=== PATIENT | female | born 2000 ===

== ENCOUNTER 2021-04-18 17:46 | Outpatient (CLI) | payer SELFPAY ==
[2021-04-18 18:42] VITALS: BP 119/72
[2021-04-18] MEDS ORDERED: LACTATED RINGERS 1,000 ML IV ONE (19:09)
[2021-04-18] MEDS ORDERED: LACTATED RINGERS 1,000 ML ONE (19:09)
[2021-04-18 19:31] LABS: Bacteria,Urine 1+ /HPF (Negative); Bilirubin,Urine NEG (Negative); Blood,Urine NEG (Negative); Color,Urine Straw (Yellow); Protein,Urine <15 mg/dL mg/dL (Negative); Urobilinogen,Urine < 2.0 mg/dL (<2.0); WBC,Urine < 1.0 /HPF (0.0-6.0)
[2021-04-18] MEDS ORDERED: TERBUTALINE 1 MG/1 ML INJ SUB-Q PRN (20:50)
== END 2021-04-18 22:00 | disposition home or self-care (01) ==
LOC: TRG 17:46 → APU 17:49 → TRG 22:00
PROVIDERS: ATTEND Obstetrics & Gynecology
DX: O62.9 Abnormality of forces of labor, unspecified (principal); Z3A.33 33 weeks gestation of pregnancy
CPT/HCPCS: 59025; 81001; 96360; 96372; J3105; J7120

== ENCOUNTER 2021-06-17 08:46 | Inpatient (IN) | payer SELFPAY ==
--- NOTE | 2021-06-17 10:35 | History and Physical Report ---
History of Present Illness Date of examination: 06/17/21 Date of admission: 06/17/2021 Chief complaint: Presents with a compliant of vaginal bleeding History of present illness: Late and Limited Care at [facility] at 26 Weeks; Only had 2 Visits; VILLA confirmed with ultrasound at 27 Weeks. Past History Past Medical History: no pertinent history Past Surgical History: no surgical history Family/Genetic History: none Social history: no significant social history, single - Obstetrical History Expected Date of Delivery: 06/05/21 Actual Gestation: 41 Week(s) 5 Day(s) : 1 Medications and Allergies Allergies Allergy/AdvReac Type Severity Reaction Status Date / Time No Known Allergies Allergy Verified 04/18/21 18:45 Active Meds: Active Medications Acetaminophen (Acetaminophen 325 Mg Tab) 650 mg PO Q4H PRN PRN Reason: Pain, Mild (1-3) Butorphanol Tartrate (Butorphanol 2 Mg/1 Ml Inj) 1 mg IV Q2H PRN PRN Reason: Pain, Moderate(4-6) LABOR PAIN Butorphanol Tartrate (Butorphanol 2 Mg/1 Ml Inj) 2 mg IV Q2H PRN PRN Reason: Pain , Severe (7-10) Carboprost Tromethamine (Carboprost Tromethamine 250 Mcg/1 Ml Inj) 250 mcg IM ONCE PRN PRN Reason: Uterine Bleeding Ephedrine Sulfate (Ephedrine Sulfate 50 Mg/1 Ml Inj) 10 mg IV Q2M PRN PRN Reason: Hypotension Lactated Ringer's (Lactated Ringers) 1,000 mls @ 125 mls/hr IV DIRECT ABIODUN Oxytocin/Sodium Chloride (Pitocin/Ns 30 Unit/500ml) 30 units in 500 mls @ 40 mls/hr IV TITR ABIODUN; Protocol Ampicillin Sodium (Ampicillin/Ns 1 Gm/50 Ml) 1 gm in 50 mls @ 100 mls/hr IV Q4H ABIODUN; Protocol Ampicillin Sodium (Ampicillin/Ns 2 Gm/100 Ml) 2 gm in 100 mls @ 100 mls/hr IV ONCE ONE; Protocol Stop: 06/17/21 11:24 Lidocaine (Lidocaine (2%) 20 Mg/1 Ml Vial 20 Ml Mdv) 20 ml INFILTRATI ONCE ONE Stop: 06/17/21 10:26 Loperamide HCl (Loperamide 2 Mg Cap) 2 mg PO ONCE PRN PRN Reason: give with Hemabate Methylergonovine Maleate (Methylergonovine Maleate 0.2 Mg/Ml Vial) 0.2 mg IM ONCE PRN PRN Reason: Uterine Bleeding Mineral Oil (Mineral Oil 30 Ml Oral Liqd) 30 ml PO QHS PRN PRN Reason: Constipation Misoprostol (Misoprostol 200 Mcg Tab) 800 mcg UT ONCE PRN PRN Reason: Uterine Bleeding Misoprostol (Misoprostol 25 Mcg Tab) 25 mcg VAGINAL ONCE ONE Stop: 06/17/21 10:26 Naloxone HCl (Naloxone 0.4 Mg/1 Ml Inj) 0.1 mg IV Q2MIN PRN PRN Reason: Res Rate </= 8 or 02 SAT < 92% Ondansetron HCl (Ondansetron 4 Mg/2 Ml Inj) 4 mg IV Q8H PRN PRN Reason: Nausea And Vomiting Oxytocin (Oxytocin 10 Unit/1 Ml Inj) 10 unit IM ONCE PRN PRN Reason: Uterine Bleeding Terbutaline Sulfate (Terbutaline 1 Mg/1 Ml Inj) 0.25 mg SUB-Q ONCE PRN PRN Reason: Hyperstimulation/Hypertonicity Review of Systems All systems: negative - Vital Signs Vital signs: Vital Signs Pulse BP Pulse Ox 80 121/75 100 06/17/21 09:18 06/17/21 09:18 06/17/21 09:18 Temp Pulse Resp BP Pulse Ox 97.8 F 85 16 121/75 99 06/17/21 09:44 06/17/21 10:28 06/17/21 09:44 06/17/21 09:18 06/17/21 10:28 - Physical Exam Breasts: Positive: normal Cardiovascular: Regular rate Lungs: Positive: Clear to auscultation, Normal air movement Abdomen: Positive: normal appearance, soft, normal bowel sounds Genitourinary (Female): Positive: normal external genitalia, normal perenium Vagina: Positive: normal moisture Uterus: Positive: enlarged Anus/Rectum: Positive: normal perianal skin Extremities: Positive: normal - Obstetrical FHR: category 1 Uterine Contraction Monitor Mode: External Cervical Dilatation: 1 (No vaginal bleeding observed) Cervical Effacement Percentage: 30 station: -3 Uterine Contraction Pattern: Irregular Uterine Tone Measurement Phase: Resting Results All other labs normal. Assessment and Plan A: IUP @ 41 5/7 Weeks Category I Tracing Insufficient Care GBS Unknown P: Admit to L&D Per Routine Orders Cytotec Induction GBS Prophylaxis
[2021-06-17] MEDS ORDERED: LOPERAMIDE 2 MG CAP PO PRN (11:00)
[2021-06-17] MEDS ORDERED: METHYLERGONOVINE MALEATE 0.2 MG/ML VIAL IM PRN (11:00)
[2021-06-17] MEDS ORDERED: ePHEDrine SULFATE 50 MG/1 ML INJ IV PRN (11:00)
[2021-06-17] MEDS ORDERED: BUTORPHANOL 2 MG/1 ML INJ IV PRN (11:00)
[2021-06-17] MEDS ORDERED: miSOPROStol 200 MCG TAB PR PRN (11:00)
[2021-06-17] MEDS ORDERED: OXYTOCIN 10 UNIT/1 ML INJ IM PRN (11:00)
[2021-06-17] MEDS ORDERED: ONDANSETRON 4 MG/2 ML INJ IV PRN (11:00)
[2021-06-17] MEDS ORDERED: TERBUTALINE 1 MG/1 ML INJ SUB-Q PRN (11:00)
[2021-06-17] MEDS ORDERED: AMPICILLIN/NS 2 GM/100 ML 2 GM/100 ML BAG IV SCH (11:00)
[2021-06-17] MEDS ORDERED: CARBOPROST TROMETHAMINE 250 MCG/1 ML INJ IM PRN (11:00)
[2021-06-17] MEDS ORDERED: ACETAMINOPHEN 325 MG TAB PO PRN (11:00)
[2021-06-17] MEDS ORDERED: NALOXONE 0.4 MG/1 ML INJ IV PRN (11:00)
[2021-06-17] MEDS ORDERED: OXYTOCIN DRIP 30 UNITS/500 ML BAG IV SCH (11:00)
[2021-06-17] MEDS ORDERED: LIDOCAINE (2%) 20 MG/1 ML VIAL 20 ML MDV INFILTRATI SCH (11:00)
[2021-06-17] MEDS ORDERED: miSOPROStol 25 MCG TAB VG SCH (11:00)
[2021-06-17] MEDS ORDERED: MINERAL OIL 30 ML ORAL LIQD PO PRN (11:00)
[2021-06-17] MEDS: LACTATED RINGERS 1,000 ML IV SCH ×2 (12:04→15:49)
[2021-06-17 12:23] LABS: Hematocrit 34.4 % (30.3-42.9); Hemoglobin 10.8 gm/dl (10.1-14.3); Mean Corpuscular HGB Conc 31 % (30-34); Mean Corpuscular Volume 84 fl (79-97); Platelet Count 313 K/mm3 (140-440); Red Blood Count 4.11 M/mm3 (3.65-5.03); Red Cell Distribution Width 16.9 % (13.2-15.2)
[2021-06-17 12:36] LABS: Amphetamine Screen,Urine Negative; Benzodiazepines Screen,Urine Negative; Cannabinoid Screen,Urine Negative; Cocaine Screen,Urine Negative; Methadone Screen,Urine Negative; Opiate Screen,Urine Negative
[2021-06-17] MEDS: AMPICILLIN/NS 1 GM/50 ML 1 GM/50 ML BAG IV SCH (15:45)
--- NOTE | 2021-06-17 16:59 | Ultrasound Report ---
ULTRASOUND OBSTETRIC LIMITED INDICATION / CLINICAL INFORMATION: HAMZAH, position. Clinical Gestational Age (GA): 41.5 weeks.days COMPARISON: None available. FINDINGS: HEART RATE (beats per minute): 156 AMNIOTIC FLUID INDEX (cm) = 10.4 (normal = 7-24 cm) PRESENTATION: Cephalic. ADDITIONAL FINDINGS: None. IMPRESSION: 1. No significant abnormality. Signer Name: Tadeo Sanchez MD Signed: 06/17/2021 4:54 PM Workstation Name: [email or web address]
[2021-06-17] MEDS: miSOPROStol 25 MCG TAB PO SCH (22:55)
[2021-06-17] MEDS: BUTORPHANOL 2 MG/1 ML INJ IV PRN (23:01)
[2021-06-18] MEDS: LACTATED RINGERS 1,000 ML IV SCH ×3 (01:00→12:15)
[2021-06-18] MEDS: miSOPROStol 25 MCG TAB PO SCH (03:22)
[2021-06-18] MEDS: BUTORPHANOL 2 MG/1 ML INJ IV PRN (03:26)
[2021-06-18] MEDS ORDERED: OXYTOCIN DRIP 30 UNITS/500 ML BAG IV SCH (07:00)
[2021-06-18] MEDS: AMPICILLIN/NS 1 GM/50 ML 1 GM/50 ML BAG IV SCH (07:08)
--- NOTE | 2021-06-18 07:21 | Progress Note ---
Assessment and Plan - Patient Problems (1) Post-term , 40-42 weeks of gestation Current Visit: Yes Status: Acute Plan to address problem: Pitocin per protocol now. Subjective - Subjective Date of service: 06/18/21 Principal diagnosis: Post-due date Interval history: 21 y/o at 42 weeks undergoing IOL secondary to post-due date. S/P Cook's catheter and cytotec. AROM'ed with meconium stained fluid. IUPC and FSE placed. Pitocin ordered. Patient reports: loss of fluid, contractions Objective - Vital Signs Vital Signs: Vital Signs - 12hr 06/17/21 06/17/21 06/17/21 19:21 19:26 19:31 Temperature Pulse Rate 82 80 82 Respiratory Rate Blood Pressure O2 Sat by Pulse 99 99 99 Oximetry 06/17/21 06/17/21 06/17/21 19:36 19:41 19:46 Temperature Pulse Rate 83 81 86 Respiratory Rate Blood Pressure O2 Sat by Pulse 99 98 99 Oximetry 06/17/21 06/17/21 06/17/21 19:58 20:03 20:08 Temperature Pulse Rate 72 80 77 Respiratory Rate Blood Pressure O2 Sat by Pulse 81 L 98 98 Oximetry 06/17/21 06/17/21 06/17/21 20:13 20:16 20:18 Temperature Pulse Rate 78 85 82 Respiratory Rate Blood Pressure O2 Sat by Pulse 98 93 99 Oximetry 06/17/21 06/17/21 06/17/21 20:23 20:28 20:33 Temperature Pulse Rate 82 77 83 Respiratory Rate Blood Pressure O2 Sat by Pulse 99 100 98 Oximetry 06/17/21 06/17/21 06/17/21 20:38 20:43 20:48 Temperature Pulse Rate 81 81 82 Respiratory Rate Blood Pressure O2 Sat by Pulse 99 99 99 Oximetry 06/17/21 06/17/21 06/17/21 20:53 22:55 23:00 Temperature Pulse Rate 78 84 86 Respiratory Rate Blood Pressure O2 Sat by Pulse 99 99 98 Oximetry 06/17/21 06/17/21 06/17/21 23:04 23:05 23:10 Temperature Pulse Rate 84 90 90 Respiratory Rate Blood Pressure O2 Sat by Pulse 94 95 96 Oximetry 06/17/21 06/17/21 06/17/21 23:15 23:20 23:25 Temperature Pulse Rate 94 H 108 H 88 Respiratory Rate Blood Pressure O2 Sat by Pulse 96 97 97 Oximetry 06/17/21 06/17/21 06/17/21 23:30 23:35 23:40 Temperature Pulse Rate 88 82 86 Respiratory Rate Blood Pressure O2 Sat by Pulse 96 97 97 Oximetry 06/17/21 06/17/21 06/17/21 23:45 23:50 23:55 Temperature Pulse Rate 81 85 85 Respiratory Rate Blood Pressure O2 Sat by Pulse 97 97 98 Oximetry 06/18/21 06/18/21 06/18/21 00:00 00:05 00:10 Temperature Pulse Rate 81 84 83 Respiratory Rate Blood Pressure O2 Sat by Pulse 98 98 98 Oximetry 06/18/21 06/18/21 06/18/21 00:13 00:15 00:20 Temperature 98.5 F Pulse Rate 83 83 Respiratory Rate Blood Pressure 125/78 O2 Sat by Pulse 99 98 Oximetry 06/18/21 06/18/21 06/18/21 00:25 00:30 00:35 Temperature Pulse Rate 84 79 83 Respiratory Rate Blood Pressure O2 Sat by Pulse 99 99 98 Oximetry 06/18/21 06/18/21 06/18/21 00:40 00:45 00:50 Temperature Pulse Rate 84 94 H 91 H Respiratory Rate Blood Pressure O2 Sat by Pulse 97 98 98 Oximetry 06/18/21 06/18/21 06/18/21 00:55 01:00 01:05 Temperature Pulse Rate 82 88 88 Respiratory Rate Blood Pressure O2 Sat by Pulse 98 98 99 Oximetry 06/18/21 06/18/21 06/18/21 01:10 01:15 01:20 Temperature Pulse Rate 80 87 91 H Respiratory Rate Blood Pressure O2 Sat by Pulse 98 98 97 Oximetry 06/18/21 06/18/21 06/18/21 01:25 01:30 01:35 Temperature Pulse Rate 84 88 81 Respiratory Rate Blood Pressure O2 Sat by Pulse 98 97 99 Oximetry 06/18/21 06/18/21 06/18/21 01:40 01:45 01:50 Temperature Pulse Rate 81 85 92 H Respiratory Rate Blood Pressure O2 Sat by Pulse 99 99 97 Oximetry 06/18/21 06/18/21 06/18/21 01:55 02:00 02:05 Temperature Pulse Rate 85 102 H 93 H Respiratory Rate Blood Pressure O2 Sat by Pulse 97 98 99 Oximetry 06/18/21 06/18/21 06/18/21 02:10 02:15 02:20 Temperature Pulse Rate 97 H 87 95 H Respiratory Rate Blood Pressure O2 Sat by Pulse 98 98 98 Oximetry 06/18/21 06/18/21 06/18/21 02:25 02:30 02:35 Temperature Pulse Rate 87 91 H 92 H Respiratory Rate Blood Pressure O2 Sat by Pulse 99 98 99 Oximetry 06/18/21 06/18/21 06/18/21 02:40 02:45 02:50 Temperature Pulse Rate 92 H 93 H 94 H Respiratory Rate Blood Pressure O2 Sat by Pulse 99 99 98 Oximetry 06/18/21 06/18/21 06/18/21 02:55 03:00 03:05 Temperature Pulse Rate 93 H 93 H 92 H Respiratory Rate Blood Pressure O2 Sat by Pulse 99 98 98 Oximetry 06/18/21 06/18/21 06/18/21 03:10 03:15 03:20 Temperature Pulse Rate 89 89 86 Respiratory Rate Blood Pressure O2 Sat by Pulse 98 99 98 Oximetry 06/18/21 06/18/21 06/18/21 03:25 03:30 03:35 Temperature Pulse Rate 83 93 H 85 Respiratory Rate Blood Pressure O2 Sat by Pulse 98 97 97 Oximetry 06/18/21 06/18/21 06/18/21 03:40 03:45 03:50 Temperature Pulse Rate 88 87 83 Respiratory Rate Blood Pressure O2 Sat by Pulse 97 97 98 Oximetry 06/18/21 06/18/21 06/18/21 03:55 04:00 04:05 Temperature Pulse Rate 85 88 88 Respiratory Rate Blood Pressure O2 Sat by Pulse 98 98 98 Oximetry 06/18/21 06/18/21 06/18/21 04:10 04:15 04:20 Temperature Pulse Rate 89 89 88 Respiratory Rate Blood Pressure O2 Sat by Pulse 98 98 98 Oximetry 06/18/21 06/18/21 06/18/21 04:25 04:30 04:35 Temperature Pulse Rate 90 91 H 90 Respiratory Rate Blood Pressure O2 Sat by Pulse 97 97 98 Oximetry 06/18/21 06/18/21 06/18/21 04:40 04:45 04:50 Temperature Pulse Rate 88 88 94 H Respiratory Rate Blood Pressure O2 Sat by Pulse 98 97 97 Oximetry 06/18/21 06/18/21 06/18/21 04:55 05:00 05:05 Temperature Pulse Rate 86 90 88 Respiratory Rate Blood Pressure O2 Sat by Pulse 97 97 97 Oximetry 06/18/21 06/18/21 06/18/21 05:10 05:15 05:20 Temperature Pulse Rate 96 H 92 H 88 Respiratory Rate Blood Pressure 116/66 O2 Sat by Pulse 97 98 98 Oximetry 06/18/21 06/18/21 06/18/21 05:25 05:30 05:35 Temperature Pulse Rate 98 H 109 H 81 Respiratory Rate Blood Pressure O2 Sat by Pulse 99 98 98 Oximetry 06/18/21 06/18/21 06/18/21 05:40 05:45 05:50 Temperature Pulse Rate 94 H 88 88 Respiratory Rate Blood Pressure O2 Sat by Pulse 99 98 99 Oximetry 06/18/21 06/18/21 06/18/21 05:55 06:00 06:05 Temperature Pulse Rate 88 86 105 H Respiratory Rate Blood Pressure O2 Sat by Pulse 98 97 98 Oximetry 06/18/21 06/18/21 06/18/21 06:10 06:15 06:20 Temperature Pulse Rate 95 H 109 H 94 H Respiratory Rate Blood Pressure O2 Sat by Pulse 99 98 99 Oximetry 06/18/21 06/18/21 06/18/21 06:25 06:30 06:35 Temperature Pulse Rate 86 90 90 Respiratory Rate Blood Pressure O2 Sat by Pulse 99 99 98 Oximetry 06/18/21 06/18/21 06/18/21 06:40 06:45 06:50 Temperature Pulse Rate 91 H 96 H 93 H Respiratory Rate Blood Pressure O2 Sat by Pulse 98 99 98 Oximetry 06/18/21 06/18/21 06/18/21 06:55 07:00 07:05 Temperature Pulse Rate 100 H 105 H 98 H Respiratory Rate Blood Pressure O2 Sat by Pulse 98 98 98 Oximetry 06/18/21 06/18/21 07:10 07:15 Temperature 98.1 F Pulse Rate 94 H 105 H Respiratory 16 Rate Blood Pressure O2 Sat by Pulse 98 98 Oximetry - Exam Breasts: normal Cardiovascular: Regular rate Lungs: Normal air movement Abdomen: Present: soft Vulva: both: normal Uterus: Present: fundal height above umbilicus FHR: category 1 Cervical Dilatation: 6 - Labs Labs: Abnormal Labs 06/17/21 06/17/21 10:25 15:20 MCH 26 L RDW 16.9 H POC Glucose 64 L Laboratory Results - last 24 hr 06/17/21 06/17/21 06/17/21 10:25 11:30 11:30 WBC 8.4 RBC 4.11 Hgb 10.8 Hct 34.4 MCV 84 MCH 26 L MCHC 31 RDW 16.9 H Plt Count 313 POC Glucose Urine Opiates Screen Urine Methadone Screen Ur Barbiturates Screen Ur Phencyclidine Scrn Ur Amphetamines Screen U Benzodiazepines Scrn Urine Cocaine Screen U Marijuana (THC) Screen Drugs of Abuse Note Syphilis IgG Antibody Nonreactive Blood Type O POSITIVE Antibody Screen Negative 06/17/21 06/17/21 11:30 15:20 WBC RBC Hgb Hct MCV MCH MCHC RDW Plt Count POC Glucose 64 L Urine Opiates Screen Negative Urine Methadone Screen Negative Ur Barbiturates Screen Negative Ur Phencyclidine Scrn Negative Ur Amphetamines Screen Negative U Benzodiazepines Scrn Negative Urine Cocaine Screen Negative U Marijuana (THC) Screen Negative Drugs of Abuse Note Disclamer Syphilis IgG Antibody Blood Type Antibody Screen
--- NOTE | 2021-06-18 10:02 | Progress Note ---
Assessment and Plan A: IUP@ 41.6wks GBS unknown Insufficient pnc P: Continue monitoring with Pitocin Cont Ampi Anticipate Subjective - Subjective Date of service: 06/18/21 Principal diagnosis: IUP@ 41.6 wks Patient reports: loss of fluid, movement normal, contractions Objective - Vital Signs Vital Signs: Vital Signs - 12hr 06/17/21 06/17/21 06/17/21 22:55 23:00 23:04 Temperature Pulse Rate 84 86 84 Respiratory Rate Blood Pressure O2 Sat by Pulse 99 98 94 Oximetry O2 Sat by Pulse Oximetry [ Bilateral Throughout] 06/17/21 06/17/21 06/17/21 23:05 23:10 23:15 Temperature Pulse Rate 90 90 94 H Respiratory Rate Blood Pressure O2 Sat by Pulse 95 96 96 Oximetry O2 Sat by Pulse Oximetry [ Bilateral Throughout] 06/17/21 06/17/21 06/17/21 23:20 23:25 23:30 Temperature Pulse Rate 108 H 88 88 Respiratory Rate Blood Pressure O2 Sat by Pulse 97 97 96 Oximetry O2 Sat by Pulse Oximetry [ Bilateral Throughout] 06/17/21 06/17/21 06/17/21 23:35 23:40 23:45 Temperature Pulse Rate 82 86 81 Respiratory Rate Blood Pressure O2 Sat by Pulse 97 97 97 Oximetry O2 Sat by Pulse Oximetry [ Bilateral Throughout] 06/17/21 06/17/21 06/18/21 23:50 23:55 00:00 Temperature Pulse Rate 85 85 81 Respiratory Rate Blood Pressure O2 Sat by Pulse 97 98 98 Oximetry O2 Sat by Pulse Oximetry [ Bilateral Throughout] 06/18/21 06/18/21 06/18/21 00:05 00:10 00:13 Temperature 98.5 F Pulse Rate 84 83 Respiratory Rate Blood Pressure O2 Sat by Pulse 98 98 Oximetry O2 Sat by Pulse Oximetry [ Bilateral Throughout] 06/18/21 06/18/21 06/18/21 00:15 00:20 00:25 Temperature Pulse Rate 83 83 84 Respiratory Rate Blood Pressure 125/78 O2 Sat by Pulse 99 98 99 Oximetry O2 Sat by Pulse Oximetry [ Bilateral Throughout] 06/18/21 06/18/21 06/18/21 00:30 00:35 00:40 Temperature Pulse Rate 79 83 84 Respiratory Rate Blood Pressure O2 Sat by Pulse 99 98 97 Oximetry O2 Sat by Pulse Oximetry [ Bilateral Throughout] 06/18/21 06/18/21 06/18/21 00:45 00:50 00:55 Temperature Pulse Rate 94 H 91 H 82 Respiratory Rate Blood Pressure O2 Sat by Pulse 98 98 98 Oximetry O2 Sat by Pulse Oximetry [ Bilateral Throughout] 06/18/21 06/18/21 06/18/21 01:00 01:05 01:10 Temperature Pulse Rate 88 88 80 Respiratory Rate Blood Pressure O2 Sat by Pulse 98 99 98 Oximetry O2 Sat by Pulse Oximetry [ Bilateral Throughout] 06/18/21 06/18/21 06/18/21 01:15 01:20 01:25 Temperature Pulse Rate 87 91 H 84 Respiratory Rate Blood Pressure O2 Sat by Pulse 98 97 98 Oximetry O2 Sat by Pulse Oximetry [ Bilateral Throughout] 06/18/21 06/18/21 06/18/21 01:30 01:35 01:40 Temperature Pulse Rate 88 81 81 Respiratory Rate Blood Pressure O2 Sat by Pulse 97 99 99 Oximetry O2 Sat by Pulse Oximetry [ Bilateral Throughout] 06/18/21 06/18/21 06/18/21 01:45 01:50 01:55 Temperature Pulse Rate 85 92 H 85 Respiratory Rate Blood Pressure O2 Sat by Pulse 99 97 97 Oximetry O2 Sat by Pulse Oximetry [ Bilateral Throughout] 06/18/21 06/18/21 06/18/21 02:00 02:05 02:10 Temperature Pulse Rate 102 H 93 H 97 H Respiratory Rate Blood Pressure O2 Sat by Pulse 98 99 98 Oximetry O2 Sat by Pulse Oximetry [ Bilateral Throughout] 06/18/21 06/18/21 06/18/21 02:15 02:20 02:25 Temperature Pulse Rate 87 95 H 87 Respiratory Rate Blood Pressure O2 Sat by Pulse 98 98 99 Oximetry O2 Sat by Pulse Oximetry [ Bilateral Throughout] 06/18/21 06/18/21 06/18/21 02:30 02:35 02:40 Temperature Pulse Rate 91 H 92 H 92 H Respiratory Rate Blood Pressure O2 Sat by Pulse 98 99 99 Oximetry O2 Sat by Pulse Oximetry [ Bilateral Throughout] 06/18/21 06/18/21 06/18/21 02:45 02:50 02:55 Temperature Pulse Rate 93 H 94 H 93 H Respiratory Rate Blood Pressure O2 Sat by Pulse 99 98 99 Oximetry O2 Sat by Pulse Oximetry [ Bilateral Throughout] 06/18/21 06/18/21 06/18/21 03:00 03:05 03:10 Temperature Pulse Rate 93 H 92 H 89 Respiratory Rate Blood Pressure O2 Sat by Pulse 98 98 98 Oximetry O2 Sat by Pulse Oximetry [ Bilateral Throughout] 06/18/21 06/18/21 06/18/21 03:15 03:20 03:25 Temperature Pulse Rate 89 86 83 Respiratory Rate Blood Pressure O2 Sat by Pulse 99 98 98 Oximetry O2 Sat by Pulse Oximetry [ Bilateral Throughout] 06/18/21 06/18/21 06/18/21 03:30 03:35 03:40 Temperature Pulse Rate 93 H 85 88 Respiratory Rate Blood Pressure O2 Sat by Pulse 97 97 97 Oximetry O2 Sat by Pulse Oximetry [ Bilateral Throughout] 06/18/21 06/18/21 06/18/21 03:45 03:50 03:55 Temperature Pulse Rate 87 83 85 Respiratory Rate Blood Pressure O2 Sat by Pulse 97 98 98 Oximetry O2 Sat by Pulse Oximetry [ Bilateral Throughout] 06/18/21 06/18/21 06/18/21 04:00 04:05 04:10 Temperature Pulse Rate 88 88 89 Respiratory Rate Blood Pressure O2 Sat by Pulse 98 98 98 Oximetry O2 Sat by Pulse Oximetry [ Bilateral Throughout] 06/18/21 06/18/21 06/18/21 04:15 04:20 04:25 Temperature Pulse Rate 89 88 90 Respiratory Rate Blood Pressure O2 Sat by Pulse 98 98 97 Oximetry O2 Sat by Pulse Oximetry [ Bilateral Throughout] 06/18/21 06/18/21 06/18/21 04:30 04:35 04:40 Temperature Pulse Rate 91 H 90 88 Respiratory Rate Blood Pressure O2 Sat by Pulse 97 98 98 Oximetry O2 Sat by Pulse Oximetry [ Bilateral Throughout] 06/18/21 06/18/21 06/18/21 04:45 04:50 04:55 Temperature Pulse Rate 88 94 H 86 Respiratory Rate Blood Pressure O2 Sat by Pulse 97 97 97 Oximetry O2 Sat by Pulse Oximetry [ Bilateral Throughout] 06/18/21 06/18/21 06/18/21 05:00 05:05 05:10 Temperature Pulse Rate 90 88 96 H Respiratory Rate Blood Pressure 116/66 O2 Sat by Pulse 97 97 97 Oximetry O2 Sat by Pulse Oximetry [ Bilateral Throughout] 06/18/21 06/18/21 06/18/21 05:15 05:20 05:25 Temperature Pulse Rate 92 H 88 98 H Respiratory Rate Blood Pressure O2 Sat by Pulse 98 98 99 Oximetry O2 Sat by Pulse Oximetry [ Bilateral Throughout] 06/18/21 06/18/21 06/18/21 05:30 05:35 05:40 Temperature Pulse Rate 109 H 81 94 H Respiratory Rate Blood Pressure O2 Sat by Pulse 98 98 99 Oximetry O2 Sat by Pulse Oximetry [ Bilateral Throughout] 06/18/21 06/18/21 06/18/21 05:45 05:50 05:55 Temperature Pulse Rate 88 88 88 Respiratory Rate Blood Pressure O2 Sat by Pulse 98 99 98 Oximetry O2 Sat by Pulse Oximetry [ Bilateral Throughout] 06/18/21 06/18/21 06/18/21 06:00 06:05 06:10 Temperature Pulse Rate 86 105 H 95 H Respiratory Rate Blood Pressure O2 Sat by Pulse 97 98 99 Oximetry O2 Sat by Pulse Oximetry [ Bilateral Throughout] 06/18/21 06/18/21 06/18/21 06:15 06:20 06:25 Temperature Pulse Rate 109 H 94 H 86 Respiratory Rate Blood Pressure O2 Sat by Pulse 98 99 99 Oximetry O2 Sat by Pulse Oximetry [ Bilateral Throughout] 06/18/21 06/18/21 06/18/21 06:30 06:35 06:40 Temperature Pulse Rate 90 90 91 H Respiratory Rate Blood Pressure O2 Sat by Pulse 99 98 98 Oximetry O2 Sat by Pulse Oximetry [ Bilateral Throughout] 06/18/21 06/18/21 06/18/21 06:45 06:50 06:55 Temperature Pulse Rate 96 H 93 H 100 H Respiratory Rate Blood Pressure O2 Sat by Pulse 99 98 98 Oximetry O2 Sat by Pulse Oximetry [ Bilateral Throughout] 06/18/21 06/18/21 06/18/21 07:00 07:05 07:10 Temperature Pulse Rate 105 H 98 H 94 H Respiratory Rate Blood Pressure O2 Sat by Pulse 98 98 98 Oximetry O2 Sat by Pulse Oximetry [ Bilateral Throughout] 06/18/21 06/18/21 06/18/21 07:15 07:20 07:25 Temperature 98.1 F Pulse Rate 105 H 92 H 100 H Respiratory 16 Rate Blood Pressure O2 Sat by Pulse 98 98 98 Oximetry O2 Sat by Pulse 99 Oximetry [ Bilateral Throughout] 06/18/21 06/18/21 06/18/21 07:30 07:35 07:40 Temperature Pulse Rate 98 H 99 H 95 H Respiratory Rate Blood Pressure O2 Sat by Pulse 99 98 98 Oximetry O2 Sat by Pulse Oximetry [ Bilateral Throughout] 06/18/21 06/18/21 06/18/21 07:45 07:50 07:55 Temperature Pulse Rate 101 H 101 H 92 H Respiratory Rate Blood Pressure O2 Sat by Pulse 98 98 98 Oximetry O2 Sat by Pulse Oximetry [ Bilateral Throughout] 06/18/21 06/18/21 06/18/21 08:00 08:05 08:10 Temperature Pulse Rate 92 H 92 H 92 H Respiratory Rate Blood Pressure O2 Sat by Pulse 98 98 98 Oximetry O2 Sat by Pulse Oximetry [ Bilateral Throughout] 06/18/21 06/18/21 06/18/21 08:15 08:20 08:25 Temperature Pulse Rate 98 H 94 H 101 H Respiratory Rate Blood Pressure O2 Sat by Pulse 97 98 100 Oximetry O2 Sat by Pulse Oximetry [ Bilateral Throughout] 06/18/21 06/18/21 06/18/21 08:30 08:35 08:40 Temperature Pulse Rate 90 92 H 93 H Respiratory Rate Blood Pressure O2 Sat by Pulse 98 98 98 Oximetry O2 Sat by Pulse Oximetry [ Bilateral Throughout] 06/18/21 06/18/21 06/18/21 08:45 08:50 08:57 Temperature Pulse Rate 102 H 92 H 87 Respiratory Rate Blood Pressure O2 Sat by Pulse 99 99 99 Oximetry O2 Sat by Pulse Oximetry [ Bilateral Throughout] 06/18/21 06/18/21 06/18/21 09:02 09:07 09:12 Temperature Pulse Rate 95 H 90 89 Respiratory Rate Blood Pressure O2 Sat by Pulse 98 98 98 Oximetry O2 Sat by Pulse Oximetry [ Bilateral Throughout] 06/18/21 06/18/21 06/18/21 09:17 09:22 09:27 Temperature Pulse Rate 96 H 94 H 92 H Respiratory Rate Blood Pressure O2 Sat by Pulse 96 98 99 Oximetry O2 Sat by Pulse Oximetry [ Bilateral Throughout] 06/18/21 06/18/21 06/18/21 09:32 09:37 09:40 Temperature Pulse Rate 93 H 100 H 80 Respiratory Rate Blood Pressure 109/56 O2 Sat by Pulse 99 98 Oximetry O2 Sat by Pulse Oximetry [ Bilateral Throughout] 06/18/21 06/18/21 06/18/21 09:41 09:42 09:43 Temperature Pulse Rate 84 89 91 H Respiratory Rate Blood Pressure 113/65 110/67 O2 Sat by Pulse 99 Oximetry O2 Sat by Pulse Oximetry [ Bilateral Throughout] 06/18/21 06/18/21 06/18/21 09:45 09:47 09:49 Temperature Pulse Rate 90 89 87 Respiratory Rate Blood Pressure 108/65 113/67 114/66 O2 Sat by Pulse 99 Oximetry O2 Sat by Pulse Oximetry [ Bilateral Throughout] 06/18/21 06/18/21 06/18/21 09:51 09:52 09:53 Temperature Pulse Rate 90 87 93 H Respiratory Rate Blood Pressure 111/67 110/68 O2 Sat by Pulse 98 Oximetry O2 Sat by Pulse Oximetry [ Bilateral Throughout] 06/18/21 09:55 Temperature Pulse Rate 90 Respiratory Rate Blood Pressure 107/65 O2 Sat by Pulse Oximetry O2 Sat by Pulse Oximetry [ Bilateral Throughout] - Exam Breasts: normal Abdomen: Present: normal appearance, soft, normal bowel sounds Vulva: both: normal Uterus: Present: normal FHR: auscultation normal, category 1 Uterine Contraction Monitor Mode: External Cervical Dilatation: 6 Cervical Effacement Percentage: 70 station: -3 Uterine Contraction Frequency (min): irreg Uterine Contraction Pattern: Irregular Uterine Tone Measurement Phase: Resting Uterine Contraction Intensity: Mild Extremities: normal - Labs Labs: Abnormal Labs 06/17/21 06/17/21 10:25 15:20 MCH 26 L RDW 16.9 H POC Glucose 64 L Laboratory Results - last 24 hr 06/17/21 06/17/21 06/17/21 10:25 11:30 11:30 WBC 8.4 RBC 4.11 Hgb 10.8 Hct 34.4 MCV 84 MCH 26 L MCHC 31 RDW 16.9 H Plt Count 313 POC Glucose Urine Opiates Screen Urine Methadone Screen Ur Barbiturates Screen Ur Phencyclidine Scrn Ur Amphetamines Screen U Benzodiazepines Scrn Urine Cocaine Screen U Marijuana (THC) Screen Drugs of Abuse Note Syphilis IgG Antibody Nonreactive Blood Type O POSITIVE Antibody Screen Negative 06/17/21 06/17/21 11:30 15:20 WBC RBC Hgb Hct MCV MCH MCHC RDW Plt Count POC Glucose 64 L Urine Opiates Screen Negative Urine Methadone Screen Negative Ur Barbiturates Screen Negative Ur Phencyclidine Scrn Negative Ur Amphetamines Screen Negative U Benzodiazepines Scrn Negative Urine Cocaine Screen Negative U Marijuana (THC) Screen Negative Drugs of Abuse Note Disclamer Syphilis IgG Antibody Blood Type Antibody Screen
[2021-06-18] MEDS ORDERED: ePHEDrine SULFATE 50 MG/1 ML INJ IV PRN (10:04)
[2021-06-18] MEDS ORDERED: NALOXONE 2 MG/2 ML INJ IV PRN (10:04)
--- NOTE | 2021-06-18 10:08 | Anesthesia Consultation ---
Anesthesia Consult and Med Hx Date of service: 06/18/21 - Airway Anesthetic Teeth Evaluation: Poor ROM Head & Neck: Adequate Mental/Hyoid Distance: Adequate Mallampati Class: Class II Intubation Access Assessment: Good - Pulmonary Exam CTA: Yes - Cardiac Exam Cardiac Exam: RRR - Pre-Operative Health Status ASA Pre-Surgery Classification: ASA2 Proposed Anesthetic Plan: Epidural - Pulmonary Hx Smoking: No Hx Asthma: No Hx Respiratory Symptoms: No SOB: No COPD: No Home Oxygen Therapy: No Hx Pneumonia: No Hx Sleep Apnea: No - Cardiovascular System Hx Hypertension: No Hx Coronary Artery Disease: No Hx Heart Attack/AMI: No Hx Angina: No Hx Percutaneous Transluminal Coronary Angioplasty (PTCA): No Hx Cardia Arrhythmia: No Hx Pacemaker: No Hx Internal Defibrillator: No Hx Valvular Heart Disease: No Hx Heart Murmur: No Hx Peripheral Vascular Disease: No - Central Nervous System Hx Neuromuscular Disorder: No Hx Seizures: No CVA: No Hx Back Pain: No Hx Psychiatric Problems: No - Gastrointestinal Hx Ulcer: No Hx Gastroesophageal Reflux Disease: No - Endocrine Hx Renal Disease: No Hx End Stage Renal Disease: No Hx Cirrhosis: No Hx Liver Disease: No Hx Insulin Dependent Diabetes: No Hx Non-Insulin Dependent Diabetes: No Hx Thyroid Disease: No Hx Hypothyroidism: No Hx Hyperthyroidism: No - Hematic Hx Anemia: No Hx Sickle Cell Disease: No - Other Systems Hx Alcohol Use: No Hx Substance Use: No Hx Cancer: No Hx Obesity: No
--- NOTE | 2021-06-18 10:09 | Progress Note ---
Labor Epidural - Labor Epidural Start Time: 09:39 Stop Time: 09:51 Performed by:: CECILIA HAIRSTON Procedure: Patient is requesting a laboring epidural for laboring pain. Patient IDed, H&P reviewed, all questions and concerns were answered, and consent was signed. Timeout was performed at bedside. Patient in sitting position. Sterile prep and drape was performed. [3] ml of 1% lidocaine skin wheal at L[3]- L [4]. 17- gauge Tuohy epidural needle was advanced to loss of resistance with saline technique 4cm. Negative CSF negative blood. Epidural catheter advanced to [8] centimeters. [NEGATIVE] Aspiration [NEGATIVE] test dose. Sterile dressing applied. Patient tolerated procedure.
[2021-06-18] MEDS: fentaNYL-BUPIV 2 MCG/ML-0.125% 200 MCG/100 ML BAG EPIDURAL SCH ×2 (10:21→18:41)
--- NOTE | 2021-06-18 17:12 | Progress Note ---
Subjective - Subjective Date of service: 06/18/21 Principal diagnosis: IUP@ 41.6 wks Interval history: Patient complete at 17:00 no urge to push with pooor pushing effort plan to allow fo rpassive descent +ve maternal temp: conitnue ampicillin, add gent FHT Cat 2 Kimberly Blount MD Patient reports: loss of fluid, movement normal, contractions Objective - Vital Signs Vital Signs: Vital Signs - 12hr 06/18/21 06/18/21 06/18/21 05:15 05:20 05:25 Temperature Pulse Rate 92 H 88 98 H Respiratory Rate Blood Pressure O2 Sat by Pulse 98 98 99 Oximetry O2 Sat by Pulse Oximetry [ Bilateral Throughout] 06/18/21 06/18/21 06/18/21 05:30 05:35 05:40 Temperature Pulse Rate 109 H 81 94 H Respiratory Rate Blood Pressure O2 Sat by Pulse 98 98 99 Oximetry O2 Sat by Pulse Oximetry [ Bilateral Throughout] 06/18/21 06/18/21 06/18/21 05:45 05:50 05:55 Temperature Pulse Rate 88 88 88 Respiratory Rate Blood Pressure O2 Sat by Pulse 98 99 98 Oximetry O2 Sat by Pulse Oximetry [ Bilateral Throughout] 06/18/21 06/18/21 06/18/21 06:00 06:05 06:10 Temperature Pulse Rate 86 105 H 95 H Respiratory Rate Blood Pressure O2 Sat by Pulse 97 98 99 Oximetry O2 Sat by Pulse Oximetry [ Bilateral Throughout] 06/18/21 06/18/21 06/18/21 06:15 06:20 06:25 Temperature Pulse Rate 109 H 94 H 86 Respiratory Rate Blood Pressure O2 Sat by Pulse 98 99 99 Oximetry O2 Sat by Pulse Oximetry [ Bilateral Throughout] 06/18/21 06/18/21 06/18/21 06:30 06:35 06:40 Temperature Pulse Rate 90 90 91 H Respiratory Rate Blood Pressure O2 Sat by Pulse 99 98 98 Oximetry O2 Sat by Pulse Oximetry [ Bilateral Throughout] 06/18/21 06/18/21 06/18/21 06:45 06:50 06:55 Temperature Pulse Rate 96 H 93 H 100 H Respiratory Rate Blood Pressure O2 Sat by Pulse 99 98 98 Oximetry O2 Sat by Pulse Oximetry [ Bilateral Throughout] 06/18/21 06/18/21 06/18/21 07:00 07:05 07:10 Temperature Pulse Rate 105 H 98 H 94 H Respiratory Rate Blood Pressure O2 Sat by Pulse 98 98 98 Oximetry O2 Sat by Pulse Oximetry [ Bilateral Throughout] 06/18/21 06/18/21 06/18/21 07:15 07:20 07:25 Temperature 98.1 F Pulse Rate 105 H 92 H 100 H Respiratory 16 Rate Blood Pressure O2 Sat by Pulse 98 98 98 Oximetry O2 Sat by Pulse 99 Oximetry [ Bilateral Throughout] 06/18/21 06/18/21 06/18/21 07:30 07:35 07:40 Temperature Pulse Rate 98 H 99 H 95 H Respiratory Rate Blood Pressure O2 Sat by Pulse 99 98 98 Oximetry O2 Sat by Pulse Oximetry [ Bilateral Throughout] 06/18/21 06/18/21 06/18/21 07:45 07:50 07:55 Temperature Pulse Rate 101 H 101 H 92 H Respiratory Rate Blood Pressure O2 Sat by Pulse 98 98 98 Oximetry O2 Sat by Pulse Oximetry [ Bilateral Throughout] 06/18/21 06/18/21 06/18/21 08:00 08:05 08:10 Temperature Pulse Rate 92 H 92 H 92 H Respiratory Rate Blood Pressure O2 Sat by Pulse 98 98 98 Oximetry O2 Sat by Pulse Oximetry [ Bilateral Throughout] 06/18/21 06/18/21 06/18/21 08:15 08:20 08:25 Temperature Pulse Rate 98 H 94 H 101 H Respiratory Rate Blood Pressure O2 Sat by Pulse 97 98 100 Oximetry O2 Sat by Pulse Oximetry [ Bilateral Throughout] 06/18/21 06/18/21 06/18/21 08:30 08:35 08:40 Temperature Pulse Rate 90 92 H 93 H Respiratory Rate Blood Pressure O2 Sat by Pulse 98 98 98 Oximetry O2 Sat by Pulse Oximetry [ Bilateral Throughout] 06/18/21 06/18/21 06/18/21 08:45 08:50 08:57 Temperature Pulse Rate 102 H 92 H 87 Respiratory Rate Blood Pressure O2 Sat by Pulse 99 99 99 Oximetry O2 Sat by Pulse Oximetry [ Bilateral Throughout] 06/18/21 06/18/21 06/18/21 09:02 09:07 09:12 Temperature Pulse Rate 95 H 90 89 Respiratory Rate Blood Pressure O2 Sat by Pulse 98 98 98 Oximetry O2 Sat by Pulse Oximetry [ Bilateral Throughout] 06/18/21 06/18/21 06/18/21 09:17 09:22 09:27 Temperature Pulse Rate 96 H 94 H 92 H Respiratory Rate Blood Pressure O2 Sat by Pulse 96 98 99 Oximetry O2 Sat by Pulse Oximetry [ Bilateral Throughout] 06/18/21 06/18/21 06/18/21 09:32 09:37 09:40 Temperature Pulse Rate 93 H 100 H 80 Respiratory Rate Blood Pressure 109/56 O2 Sat by Pulse 99 98 Oximetry O2 Sat by Pulse Oximetry [ Bilateral Throughout] 06/18/21 06/18/21 06/18/21 09:41 09:42 09:43 Temperature Pulse Rate 84 89 91 H Respiratory Rate Blood Pressure 113/65 110/67 O2 Sat by Pulse 99 Oximetry O2 Sat by Pulse Oximetry [ Bilateral Throughout] 06/18/21 06/18/21 06/18/21 09:45 09:47 09:49 Temperature Pulse Rate 90 89 87 Respiratory Rate Blood Pressure 108/65 113/67 114/66 O2 Sat by Pulse 99 Oximetry O2 Sat by Pulse Oximetry [ Bilateral Throughout] 06/18/21 06/18/21 06/18/21 09:51 09:52 09:53 Temperature Pulse Rate 90 87 93 H Respiratory Rate Blood Pressure 111/67 110/68 O2 Sat by Pulse 98 Oximetry O2 Sat by Pulse Oximetry [ Bilateral Throughout] 06/18/21 06/18/21 06/18/21 09:55 09:57 09:59 Temperature Pulse Rate 90 84 75 Respiratory Rate Blood Pressure 107/65 114/67 109/55 O2 Sat by Pulse 99 Oximetry O2 Sat by Pulse Oximetry [ Bilateral Throughout] 06/18/21 06/18/21 06/18/21 10:01 10:02 10:03 Temperature Pulse Rate 81 104 H 88 Respiratory Rate Blood Pressure 102/57 103/55 O2 Sat by Pulse 98 Oximetry O2 Sat by Pulse Oximetry [ Bilateral Throughout] 06/18/21 06/18/21 06/18/21 10:06 10:07 10:08 Temperature Pulse Rate 94 H 107 H 129 H Respiratory Rate Blood Pressure 99/55 100/52 O2 Sat by Pulse 97 Oximetry O2 Sat by Pulse Oximetry [ Bilateral Throughout] 06/18/21 06/18/21 06/18/21 10:10 10:12 10:14 Temperature Pulse Rate 82 93 H 96 H Respiratory Rate Blood Pressure 126/66 117/59 109/57 O2 Sat by Pulse 98 Oximetry O2 Sat by Pulse Oximetry [ Bilateral Throughout] 06/18/21 06/18/21 06/18/21 10:16 10:17 10:18 Temperature Pulse Rate 102 H 95 H 106 H Respiratory Rate Blood Pressure 107/59 100/53 O2 Sat by Pulse 98 Oximetry O2 Sat by Pulse Oximetry [ Bilateral Throughout] 06/18/21 06/18/21 06/18/21 10:20 10:22 10:24 Temperature Pulse Rate 98 H 96 H 104 H Respiratory Rate Blood Pressure 109/56 106/56 103/55 O2 Sat by Pulse 98 Oximetry O2 Sat by Pulse Oximetry [ Bilateral Throughout] 06/18/21 06/18/21 06/18/21 10:26 10:27 10:30 Temperature Pulse Rate 97 H 98 H 95 H Respiratory Rate Blood Pressure 108/59 106/58 O2 Sat by Pulse 96 Oximetry O2 Sat by Pulse Oximetry [ Bilateral Throughout] 06/18/21 06/18/21 06/18/21 10:32 10:37 10:38 Temperature Pulse Rate 97 H 94 H 90 Respiratory Rate Blood Pressure 104/54 O2 Sat by Pulse 96 97 Oximetry O2 Sat by Pulse Oximetry [ Bilateral Throughout] 06/18/21 06/18/21 06/18/21 10:42 10:47 10:48 Temperature Pulse Rate 97 H 92 H 91 H Respiratory Rate Blood Pressure 105/58 O2 Sat by Pulse 97 96 Oximetry O2 Sat by Pulse Oximetry [ Bilateral Throughout] 06/18/21 06/18/21 06/18/21 10:52 10:57 11:02 Temperature Pulse Rate 100 H 102 H 96 H Respiratory Rate Blood Pressure 98/54 O2 Sat by Pulse 96 97 96 Oximetry O2 Sat by Pulse Oximetry [ Bilateral Throughout] 06/18/21 06/18/21 06/18/21 11:07 11:12 11:17 Temperature Pulse Rate 99 H 95 H 96 H Respiratory Rate Blood Pressure 102/50 95/53 O2 Sat by Pulse 96 96 96 Oximetry O2 Sat by Pulse Oximetry [ Bilateral Throughout] 06/18/21 06/18/21 06/18/21 11:22 11:27 11:32 Temperature Pulse Rate 96 H 93 H 95 H Respiratory Rate Blood Pressure 94/53 O2 Sat by Pulse 96 96 96 Oximetry O2 Sat by Pulse Oximetry [ Bilateral Throughout] 06/18/21 06/18/21 06/18/21 11:37 11:38 11:42 Temperature Pulse Rate 91 H 104 H 87 Respiratory Rate Blood Pressure 123/51 O2 Sat by Pulse 95 96 Oximetry O2 Sat by Pulse Oximetry [ Bilateral Throughout] 06/18/21 06/18/21 06/18/21 11:47 11:52 11:57 Temperature Pulse Rate 93 H 113 H 105 H Respiratory Rate Blood Pressure 96/51 O2 Sat by Pulse 97 98 97 Oximetry O2 Sat by Pulse Oximetry [ Bilateral Throughout] 06/18/21 06/18/21 06/18/21 11:58 12:02 12:07 Temperature Pulse Rate 98 H 103 H 108 H Respiratory Rate Blood Pressure 108/57 O2 Sat by Pulse 97 98 Oximetry O2 Sat by Pulse Oximetry [ Bilateral Throughout] 06/18/21 06/18/21 06/18/21 12:08 12:12 12:17 Temperature Pulse Rate 104 H 84 96 H Respiratory Rate Blood Pressure 99/57 O2 Sat by Pulse 97 96 Oximetry O2 Sat by Pulse Oximetry [ Bilateral Throughout] 06/18/21 06/18/21 06/18/21 12:18 12:20 12:22 Temperature Pulse Rate 96 H 97 H 88 Respiratory Rate Blood Pressure 104/58 O2 Sat by Pulse 92 96 Oximetry O2 Sat by Pulse Oximetry [ Bilateral Throughout] 06/18/21 06/18/21 06/18/21 12:27 12:32 12:37 Temperature Pulse Rate 91 H 91 H 91 H Respiratory Rate Blood Pressure 104/56 107/56 O2 Sat by Pulse 97 98 97 Oximetry O2 Sat by Pulse Oximetry [ Bilateral Throughout] 06/18/21 06/18/21 06/18/21 12:42 12:47 12:52 Temperature Pulse Rate 93 H 83 86 Respiratory Rate Blood Pressure 99/54 O2 Sat by Pulse 96 97 97 Oximetry O2 Sat by Pulse Oximetry [ Bilateral Throughout] 06/18/21 06/18/21 06/18/21 12:57 12:58 13:02 Temperature Pulse Rate 89 85 86 Respiratory Rate Blood Pressure 104/60 O2 Sat by Pulse 97 97 Oximetry O2 Sat by Pulse Oximetry [ Bilateral Throughout] 06/18/21 06/18/21 06/18/21 13:07 13:12 13:17 Temperature Pulse Rate 95 H 97 H 93 H Respiratory Rate Blood Pressure 109/66 O2 Sat by Pulse 97 97 97 Oximetry O2 Sat by Pulse Oximetry [ Bilateral Throughout] 06/18/21 06/18/21 06/18/21 13:18 13:22 13:27 Temperature Pulse Rate 93 H 98 H 99 H Respiratory Rate Blood Pressure 113/59 111/58 O2 Sat by Pulse 96 97 Oximetry O2 Sat by Pulse Oximetry [ Bilateral Throughout] 06/18/21 06/18/21 06/18/21 13:32 13:37 13:42 Temperature Pulse Rate 90 87 83 Respiratory Rate Blood Pressure 104/58 O2 Sat by Pulse 98 99 100 Oximetry O2 Sat by Pulse Oximetry [ Bilateral Throughout] 06/18/21 06/18/21 06/18/21 13:45 13:47 13:52 Temperature Pulse Rate 96 H 89 87 Respiratory Rate Blood Pressure 98/57 O2 Sat by Pulse 90 100 99 Oximetry O2 Sat by Pulse Oximetry [ Bilateral Throughout] 06/18/21 06/18/21 06/18/21 13:57 14:00 14:02 Temperature Pulse Rate 86 87 87 Respiratory Rate Blood Pressure 98/56 O2 Sat by Pulse 99 89 99 Oximetry O2 Sat by Pulse Oximetry [ Bilateral Throughout] 06/18/21 06/18/21 06/18/21 14:06 14:07 14:12 Temperature Pulse Rate 96 H 92 H 82 Respiratory Rate Blood Pressure 101/59 O2 Sat by Pulse 90 99 99 Oximetry O2 Sat by Pulse Oximetry [ Bilateral Throughout] 06/18/21 06/18/21 06/18/21 14:17 14:18 14:22 Temperature Pulse Rate 84 82 92 H Respiratory Rate Blood Pressure 105/58 O2 Sat by Pulse 100 99 Oximetry O2 Sat by Pulse Oximetry [ Bilateral Throughout] 06/18/21 06/18/21 06/18/21 14:23 14:27 14:32 Temperature Pulse Rate 83 87 96 H Respiratory Rate Blood Pressure 98/57 O2 Sat by Pulse 87 98 98 Oximetry O2 Sat by Pulse Oximetry [ Bilateral Throughout] 06/18/21 06/18/21 06/18/21 14:37 14:42 14:47 Temperature Pulse Rate 85 88 89 Respiratory Rate Blood Pressure 103/51 101/50 O2 Sat by Pulse 97 96 96 Oximetry O2 Sat by Pulse Oximetry [ Bilateral Throughout] 06/18/21 06/18/21 06/18/21 14:52 14:57 15:02 Temperature Pulse Rate 111 H 105 H 88 Respiratory Rate Blood Pressure 102/55 O2 Sat by Pulse 96 96 100 Oximetry O2 Sat by Pulse Oximetry [ Bilateral Throughout] 06/18/21 06/18/21 06/18/21 15:07 15:12 15:17 Temperature Pulse Rate 81 95 H 94 H Respiratory Rate Blood Pressure 107/58 O2 Sat by Pulse 98 99 98 Oximetry O2 Sat by Pulse Oximetry [ Bilateral Throughout] 06/18/21 06/18/21 06/18/21 15:18 15:22 15:28 Temperature Pulse Rate 93 H 103 H 105 H Respiratory Rate Blood Pressure 109/59 108/59 O2 Sat by Pulse 98 Oximetry O2 Sat by Pulse Oximetry [ Bilateral Throughout] 06/18/21 06/18/21 06/18/21 15:29 15:34 15:38 Temperature Pulse Rate 89 91 H 82 Respiratory Rate Blood Pressure 107/56 O2 Sat by Pulse 98 100 Oximetry O2 Sat by Pulse Oximetry [ Bilateral Throughout] 06/18/21 06/18/21 06/18/21 15:39 15:44 15:47 Temperature Pulse Rate 85 82 85 Respiratory Rate Blood Pressure 121/68 O2 Sat by Pulse 100 100 Oximetry O2 Sat by Pulse Oximetry [ Bilateral Throughout] 06/18/21 06/18/21 06/18/21 15:49 15:54 15:57 Temperature Pulse Rate 91 H 94 H 77 Respiratory Rate Blood Pressure 122/71 O2 Sat by Pulse 99 100 Oximetry O2 Sat by Pulse Oximetry [ Bilateral Throughout] 06/18/21 06/18/21 06/18/21 15:59 16:04 16:07 Temperature Pulse Rate 89 91 H 88 Respiratory Rate Blood Pressure 122/72 O2 Sat by Pulse 100 100 Oximetry O2 Sat by Pulse Oximetry [ Bilateral Throughout] 06/18/21 06/18/21 06/18/21 16:09 16:14 16:17 Temperature Pulse Rate 85 97 H 93 H Respiratory Rate Blood Pressure 119/76 O2 Sat by Pulse 100 100 Oximetry O2 Sat by Pulse Oximetry [ Bilateral Throughout] 06/18/21 06/18/21 06/18/21 16:19 16:24 16:27 Temperature Pulse Rate 88 94 H 82 Respiratory Rate Blood Pressure 118/71 O2 Sat by Pulse 100 100 Oximetry O2 Sat by Pulse Oximetry [ Bilateral Throughout] 06/18/21 06/18/21 06/18/21 16:29 16:34 16:37 Temperature Pulse Rate 85 89 85 Respiratory Rate Blood Pressure 126/73 O2 Sat by Pulse 100 100 Oximetry O2 Sat by Pulse Oximetry [ Bilateral Throughout] 06/18/21 06/18/21 06/18/21 16:39 16:44 16:47 Temperature Pulse Rate 97 H 99 H 100 H Respiratory Rate Blood Pressure 123/69 O2 Sat by Pulse 100 100 Oximetry O2 Sat by Pulse Oximetry [ Bilateral Throughout] 06/18/21 06/18/21 06/18/21 16:49 16:54 16:57 Temperature Pulse Rate 91 H 90 93 H Respiratory Rate Blood Pressure 113/74 O2 Sat by Pulse 100 100 Oximetry O2 Sat by Pulse Oximetry [ Bilateral Throughout] 06/18/21 06/18/21 06/18/21 16:59 17:04 17:07 Temperature Pulse Rate 89 109 H 96 H Respiratory Rate Blood Pressure 106/59 O2 Sat by Pulse 100 99 Oximetry O2 Sat by Pulse Oximetry [ Bilateral Throughout] 06/18/21 17:09 Temperature Pulse Rate 95 H Respiratory Rate Blood Pressure O2 Sat by Pulse 100 Oximetry O2 Sat by Pulse Oximetry [ Bilateral Throughout] - Labs Labs: Abnormal Labs 06/17/21 06/17/21 10:25 15:20 MCH 26 L RDW 16.9 H POC Glucose 64 L Laboratory Results - last 24 hr 06/18/21 09:20 Coronavirus (PCR) Negative
[2021-06-18] MEDS ORDERED: GENTAMICIN/NS 80 MG/100 ML 100 ML IV SCH (18:00)
[2021-06-18] MEDS ORDERED: SODIUM CHLORIDE 0.9% 500 ML 500 ML IV SCH (19:46)
[2021-06-18] MEDS ORDERED: fentaNYL 100 MCG/2 ML INJ IV PRN (20:03)
[2021-06-18] MEDS ORDERED: BUTORPHANOL 2 MG/1 ML INJ IV PRN ×2 (20:03)
[2021-06-18] MEDS ORDERED: ACETAMINOPHEN 325 MG TAB PO PRN ×2 (20:03→23:15)
--- NOTE | 2021-06-18 20:18 | Procedure Note ---
OB Delivery Note - Delivery Date of Delivery: 06/18/21 Surgeon: TIFFANY LAW Estimated blood loss: 1000cc - Vaginal Delivery position: OA Intrapartum events: febrile- temp >100.3, meconium, extend. bradycardia, mult.variable deceleratio, hemorrhage, shoulder dystocia, other(please specify) (chorioamnionitis) Delivery augmentation: rupture of membranes, pitocin Delivery monitor: internal FHT, internal uterine Route of delivery: vacuum extraction Indicators for instrumentation: maternal exhaustion Delivery placenta: manual, uterine exploration Delivery cord: 3 umbilical vessels Episiotomy: midline Delivery laceration: 4th degree Delivery repair: vicryl Anesthesia: epidural Delivery comments: Patient pushed to deliver a viable female via vacuum-assisted vaginal delivery over a midline episiotomy. Vacuum applied x3 to a maximum of 500 mmHg with 3 pulls. No excess force or traction applied. Vacuum applied second to extended bradycardia with maternal exhaustion. Tight nuchal cord was reduced after delivery of the anterior shoulder. There was a shoulder dystocia of less than 30 seconds the reduced with Sary maneuver. After the anterior shoulder delivered the remainder of the delivery was uncomplicated and the baby placed on maternal abdomen. Cord was clamped and cut and baby handed immediately to waiting that team. Brisk bleeding noted after cord was clamped and cut, the uterus was manually explored and the placenta removed. The uterus is noted to be atonic, this responded and resolved with brisk bimanual massage with 10 units of Pitocin IM, Methergine 0.2 mg IM x2 doses and oxytocin infusion per protocol. Midline episiotomy extended to 1/4 degree approximately 2 cm extending into the rectum. This was repaired with 0 Vicryl and 3-0 Vicryl in the usual fashion with excellent hemostasis. The rectum was patent at the completion of the procedure. The fundus was firm at the completion of the procedure with excellent hemostasis. All sponge needle and instrument counts are correct x2 Mom and baby to in stable condition. 6 and 7 Weight 3855gms. Placenta sent to pathology second to postdates, chorioamnionitis, meconium. EBL 1000ml. plan to transfuse one unit PRBC's and check H/H. Kimberly Law MD
[2021-06-18] MEDS ORDERED: diphenhydrAMINE 25 MG CAP PO PRN (23:15)
[2021-06-18] MEDS ORDERED: LANOLIN/ZINC/DIMETHICONE (LANSINOH) 7 GM TP PRN (23:15)
[2021-06-18] MEDS ORDERED: oxyCODONE /ACETAMINOPHEN 5-325MG TAB PO PRN (23:15)
[2021-06-18] MEDS ORDERED: WITCH HAZEL/ GLYCERIN PAD TP PRN (23:15)
[2021-06-18] MEDS ORDERED: PROMETHAZINE 25 MG RECT SUPP PR PRN (23:15)
[2021-06-18] MEDS ORDERED: ONDANSETRON 4 MG/2 ML INJ IV PRN (23:15)
[2021-06-18] MEDS ORDERED: HYDROcodone/ACETAMINOPHEN 5-325 MG TAB PO PRN (23:15)
[2021-06-18] MEDS ORDERED: PROMETHAZINE 25 MG TAB PO PRN (23:15)
[2021-06-18] MEDS ORDERED: MAGNESIUM HYDROXIDE (MOM) ORAL LIQD UDC PO PRN (23:15)
[2021-06-19 01:57] LABS: Hemoglobin 9.5 gm/dl (10.1-14.3); Mean Corpuscular HGB Conc 32 % (30-34); Mean Corpuscular Volume 82 fl (79-97); Platelet Count 211 K/mm3 (140-440); Red Blood Count 3.65 M/mm3 (3.65-5.03); Red Cell Distribution Width 16.7 % (13.2-15.2)
[2021-06-19] MEDS: IBUPROFEN 600 MG TAB PO SCH ×4 (02:44→18:05)
[2021-06-19 03:37] LABS: RBC Morphology Normal; Total Cells Counted 100
[2021-06-19 09:22] LABS: Hematocrit 26.2 % (30.3-42.9); Hemoglobin 8.1 gm/dl (10.1-14.3)
--- NOTE | 2021-06-19 09:34 | Progress Note ---
Assessment and Plan PPD#1 Vacuum asst delivery with leucocytosis, still with endomyometritis; asymptomatic anemia and mild labial swelling 1. Repeat cbc for wbc and hgb now 8.1 seen 2. Will give iron supplement 3. Pt taken to restroom and uterus remains 3cm above the umbilicus 4. Will add augmentin to treat endomyometritis 5. Since tacchycardia resolving, I will hold any radiographic studies. 6. Ice pack replaced after pt taken to rest room for labial swelling Plan of care discussed with her charge nurse and pt as well. All questions encouraged and answered Subjective Date of service: 06/19/21 Principal diagnosis: PPD#1 Vacuum asst delivery Interval history: Pt is eating breakfast, vag bleed like a period and pelvic controlled with meds. pt is bottle feed. Objective - Constitutional Vitals: Vital Signs - 12hr 06/18/21 06/18/21 06/18/21 21:32 21:35 21:40 Temperature Pulse Rate 92 H 95 H 99 H Respiratory Rate Blood Pressure 117/67 Blood Pressure [Left] O2 Sat by Pulse 99 99 Oximetry O2 Sat by Pulse Oximetry [ Bilateral Throughout] 06/18/21 06/18/21 06/18/21 21:45 21:47 21:50 Temperature Pulse Rate 95 H 100 H 101 H Respiratory Rate Blood Pressure 119/64 Blood Pressure [Left] O2 Sat by Pulse 99 99 Oximetry O2 Sat by Pulse Oximetry [ Bilateral Throughout] 06/18/21 06/18/21 06/18/21 21:54 21:55 22:00 Temperature Pulse Rate 83 90 105 H Respiratory Rate Blood Pressure 112/63 Blood Pressure [Left] O2 Sat by Pulse 99 97 Oximetry O2 Sat by Pulse Oximetry [ Bilateral Throughout] 06/18/21 06/18/21 06/18/21 22:05 22:10 22:15 Temperature Pulse Rate 100 H 94 H 93 H Respiratory Rate Blood Pressure Blood Pressure [Left] O2 Sat by Pulse 99 99 100 Oximetry O2 Sat by Pulse Oximetry [ Bilateral Throughout] 06/18/21 06/18/21 06/18/21 22:20 22:25 22:30 Temperature Pulse Rate 89 87 86 Respiratory Rate Blood Pressure 109/55 Blood Pressure [Left] O2 Sat by Pulse 99 99 99 Oximetry O2 Sat by Pulse Oximetry [ Bilateral Throughout] 06/18/21 06/18/21 06/18/21 22:35 22:40 22:45 Temperature Pulse Rate 86 80 80 Respiratory Rate Blood Pressure Blood Pressure [Left] O2 Sat by Pulse 99 99 99 Oximetry O2 Sat by Pulse Oximetry [ Bilateral Throughout] 06/18/21 06/18/21 06/18/21 22:50 22:55 23:00 Temperature Pulse Rate 86 82 89 Respiratory Rate Blood Pressure 109/55 Blood Pressure [Left] O2 Sat by Pulse 99 99 100 Oximetry O2 Sat by Pulse Oximetry [ Bilateral Throughout] 06/18/21 06/18/21 06/19/21 23:05 23:10 00:00 Temperature 99.0 F Pulse Rate 80 102 H Respiratory Rate Blood Pressure Blood Pressure [Left] O2 Sat by Pulse 99 98 Oximetry O2 Sat by Pulse Oximetry [ Bilateral Throughout] 06/19/21 06/19/21 06/19/21 01:05 02:44 03:44 Temperature 98.8 F Pulse Rate 100 H Respiratory 18 18 18 Rate Blood Pressure Blood Pressure 110/58 [Left] O2 Sat by Pulse 98 Oximetry O2 Sat by Pulse 98 Oximetry [ Bilateral Throughout] 06/19/21 06/19/21 06/19/21 04:34 07:21 07:40 Temperature 99.6 F 98.2 F Pulse Rate 99 H 84 Respiratory 20 18 Rate Blood Pressure 106/50 108/59 Blood Pressure [Left] O2 Sat by Pulse 97 99 Oximetry O2 Sat by Pulse 99 Oximetry [ Bilateral Throughout] General appearance: Present: no acute distress - Respiratory Respiratory effort: normal - Breasts Breasts: normal - Cardiovascular Rhythm: regular Extremities: No edema - Gastrointestinal General gastrointestinal: Present: soft, non-tender - Genitourinary Female genitourinary: other (fundus tender and 3cm above the umbilicus even after voiding 300cc clear urine; labia with mild swelling. ) - Integumentary Integumentary: warm, dry - Neurologic Neurologic: moves all extremities - Psychiatric Psychiatric: cooperative - Labs CBC & Chem 7: 06/19/21 08:42 Labs: Abnormal lab results 06/17/21 06/19/21 06/19/21 Range/Units 11:30 01:44 08:42 WBC 20.8 H (4.5-11.0) K/mm3 Hgb 9.5 L 8.1 L (10.1-14.3) gm/dl Hct 30.0 L 26.2 L (30.3-42.9) % MCH 26 L (28-32) pg RDW 16.7 H (13.2-15.2) % Seg Neuts % (Manual) 84.0 H (40.0-70.0) % Lymphocytes % (Manual) 10.0 L (13.4-35.0) % Seg Neutrophils # Man 17.5 H (1.8-7.7) K/mm3 Monocytes # (Manual) 1.2 H (0.0-0.8) K/mm3 Crossmatch See Detail Medications & Allergies - Medications Allergies/Adverse Reactions: Allergies No Known Allergies Allergy (Verified 04/18/21 18:45) Home Medications: Home Medications Medication Instructions Recorded Confirmed Last Taken Type Vit-Fe Fumar-FA [ 1 tab PO QDAY 06/17/21 06/17/21 1 Month Ago History Vitamin] ~05/18/21 Active Medications: Generic Name Dose Route Start Last Admin Trade Name Freq PRN Reason Stop Dose Admin Acetaminophen 650 mg 06/18/21 23:15 Acetaminophen 325 Mg Tab PO Q4H PRN Pain MILD(1-3)/Fever >100.5/NGUYEN Hydrocodone Bitart/Acetaminophen 2 each 06/18/21 23:15 Hydrocodone/Acetaminophen 5-325 Mg Tab PO Q6H PRN Pain, Moderate (4-6) Bisacodyl 10 mg 06/18/21 23:15 Bisacodyl 10 Mg Rect Supp [place] BID PRN Constipation Butorphanol Tartrate 1 mg 06/18/21 20:03 Butorphanol 2 Mg/1 Ml Inj IV Q2H PRN Pain, Moderate(4-6) LABOR PAIN Butorphanol Tartrate 2 mg 06/18/21 20:03 Butorphanol 2 Mg/1 Ml Inj IV Q2H PRN Pain , Severe (7-10) Diphenhydramine HCl 25 mg 06/18/21 23:15 Diphenhydramine 25 Mg Cap PO Q6H PRN Itching Diphtheria/Tetanus/Acell Pertussis 0.5 ml 06/20/21 06:00 Tetanus,Diph,Pertuss(Acell) Vaccine 0.5 Ml Syringe IM 06/20/21 06:01 .ONCE ONE Docusate Sodium 100 mg 06/18/21 23:15 Docusate Sodium 100 Mg Cap PO BID ABIODUN Fentanyl 100 mcg 06/18/21 20:03 Fentanyl 100 Mcg/2 Ml Inj IV Q2H PRN Pain,Severe (7-10) LABOR PAIN Lactated Ringer's 1,000 mls @ 125 mls/hr 06/17/21 10:30 06/18/21 12:15 Lactated Ringers IV 125 mls/hr DIRECT ABIODUN Administration Oxytocin/Sodium Chloride 30 units in 500 mls @ 40 mls/hr 06/17/21 11:00 Pitocin/Ns 30 Unit/500ml IV TITR ABIODUN Protocol Oxytocin/Sodium Chloride 30 units in 500 mls @ 0 mls/hr 06/18/21 07:00 06/18/21 13:57 Pitocin/Ns 30 Unit/500ml IV 8 ml/hr TITR ABIODUN 8 mls/hr Titration Protocol Titrate Fentanyl/Bupivacaine/Sodium Chlor 200 mcg in 100 mls @ 12 mls/hr 06/18/21 11:00 06/18/21 18:41 Fentanyl-Bupiv 2 Mcg/Ml-0.125% EPIDURAL 12 mls/hr TITR ABIODUN Administration Protocol Sodium Chloride 500 mls @ 0 mls/hr 06/18/21 19:46 Nacl 0.9% 500 Ml IV ONCE ABIODUN As Directed Clindamycin HCl 900 mg in 50 mls @ 100 mls/hr 06/19/21 03:00 06/19/21 02:44 Cleocin 900 Mg/50 Ml IV 100 mls/hr Q8H ABIODUN Administration Protocol Ibuprofen 600 mg 06/18/21 23:15 06/19/21 02:44 Ibuprofen 600 Mg Tab PO 600 mg Q6HR ABIODUN Administration Loperamide HCl 2 mg 06/17/21 11:00 Loperamide 2 Mg Cap PO ONCE PRN give with Hemabate Magnesium Hydroxide 30 ml 06/18/21 23:15 Magnesium Hydroxide (Mom) Oral Liqd Udc PO HS PRN Constipation Misoprostol 800 mcg 06/17/21 11:00 Misoprostol 200 Mcg Tab [place] ONCE PRN Uterine Bleeding Multi-Ingredient Ointment 1 applic 06/18/21 23:15 Lanolin/Zinc/Dimethicone (Lansinoh) 7 Gm TP PRN PRN Sore Nipples Multivitamins/Iron/Calcium 1 each 06/19/21 10:00 [id number] Fumarate-Folic Acid Vit Tab PO QDAY ABIODUN Naloxone HCl 0.2 mg 06/18/21 10:04 Naloxone 2 Mg/2 Ml Inj IV Q5M PRN Respiratory sedation Ondansetron HCl 4 mg 06/18/21 23:15 Ondansetron 4 Mg/2 Ml Inj IV Q8H PRN Nausea And Vomiting Oxycodone/Acetaminophen 1 tab 06/18/21 23:15 Oxycodone /Acetaminophen 5-325mg Tab PO Q6H PRN Pain, Moderate (4-6) Promethazine HCl 25 mg 06/18/21 23:15 Promethazine 25 Mg Rect Supp [place] Q6H PRN Nausea And Vomiting Promethazine HCl 25 mg 06/18/21 23:15 Promethazine 25 Mg Tab PO Q6H PRN Nausea And Vomiting Senna/Docusate Sodium 2 tab 06/18/21 23:15 Sennosides/Docusate Sodium 8.6/50 Mg Tab PO Q12HR [facility] Sodium Chloride 10 ml 06/18/21 23:15 Sodium Chloride 0.9% 10 Ml Flush Syringe IV PRN PRN LINE FLUSH Witch Zulma/Glycerin 1 each 06/18/21 23:15 06/19/21 02:44 Witch Zulma/ Glycerin Pad TP 1 each PRN PRN Administration Hemorrhoid/cleansing/soothing
[2021-06-19 09:47] LABS: Basophils % (Auto) 0.3 % (0.0-1.8); Eosinophils # (Auto) 0.1 K/mm3 (0.0-0.4); Eosinophils % (Auto) 0.4 % (0.0-4.3); Hematocrit 26.5 % (30.3-42.9); Hemoglobin 8.3 gm/dl (10.1-14.3); Lymphocytes # (Auto) 2.2 K/mm3 (1.2-5.4); Lymphocytes % (Auto) 11.5 % (13.4-35.0); Mean Corpuscular HGB Conc 31 % (30-34); Mean Corpuscular Volume 83 fl (79-97); Monocytes # (Auto) 1.4 K/mm3 (0.0-0.8); Monocytes % (Auto) 7.6 % (0.0-7.3); Platelet Count 206 K/mm3 (140-440); Red Cell Distribution Width 16.9 % (13.2-15.2)
[2021-06-19] MEDS: DOCUSATE SODIUM 100 MG CAP PO SCH ×2 (10:41→22:18)
[2021-06-19] MEDS: SENNOSIDES/DOCUSATE SODIUM 8.6/50 MG TAB PO SCH ×2 (10:41→22:18)
[2021-06-19] MEDS: PRENATAL VIT27-FE FUMARATE-FOLIC ACID VIT TAB PO SCH (10:42)
[2021-06-19] MEDS: AMOXICILLIN/K CLAV 875/125MG TAB PO SCH ×2 (11:32→22:18)
--- NOTE | 2021-06-19 16:06 | Post Anesthesia Evaluation ---
- Post Anesthesia Evaluation Patient Participated: Yes Airway Patent: Yes Stable Respiratory Function: Yes Nausea/Vomiting: No Temp > 96.8F: Yes Pain Manageable: Yes Adequeate Hydration: Yes Anesthesia Complications: No Block Receding Appropriately: Yes Patient on Ventilator: No
[2021-06-20] MEDS: IBUPROFEN 600 MG TAB PO SCH ×4 (00:14→18:49)
[2021-06-20] MEDS ORDERED: TETANUS,DIPH,PERTUSS(ACELL) VACCINE 0.5 ML SYRINGE IM ONE (06:00)
[2021-06-20 11:08] LABS: Basophils # (Auto) 0.1 K/mm3 (0.0-0.1); Basophils % (Auto) 0.3 % (0.0-1.8); Eosinophils # (Auto) 0.4 K/mm3 (0.0-0.4); Eosinophils % (Auto) 2.7 % (0.0-4.3); Hematocrit 23.2 % (30.3-42.9); Hemoglobin 7.4 gm/dl (10.1-14.3); Lymphocytes # (Auto) 1.9 K/mm3 (1.2-5.4); Lymphocytes % (Auto) 13.2 % (13.4-35.0); Mean Corpuscular HGB Conc 32 % (30-34); Mean Corpuscular Volume 82 fl (79-97); Monocytes # (Auto) 0.8 K/mm3 (0.0-0.8); Monocytes % (Auto) 5.4 % (0.0-7.3); Platelet Count 233 K/mm3 (140-440); Red Blood Count 2.81 M/mm3 (3.65-5.03); Red Cell Distribution Width 16.6 % (13.2-15.2)
[2021-06-20] MEDS: PRENATAL VIT27-FE FUMARATE-FOLIC ACID VIT TAB PO SCH (11:54)
[2021-06-20] MEDS: DOCUSATE SODIUM 100 MG CAP PO SCH (11:55)
[2021-06-20] MEDS ORDERED: FLU VACC QUAD 2021-22(6MOS UP)/PF 60 MCG/0.5 ML SYRINGE IM ONE (12:00)
[2021-06-20] MEDS: AMOXICILLIN/K CLAV 875/125MG TAB PO SCH (12:00)
--- NOTE | 2021-06-20 16:23 | Progress Note ---
Assessment and Plan PPD#2 with acute endomyometritis with leucocytosis resolving, afebrile, however with decreasing hemoglobin 1. U/S for possible retained products of conception 2. Discharge home later if u/s normal on iron supplement and repeat cbc stable. 3. Plan of care discussed with pt and all questions encouraged and answered Subjective Date of service: 06/20/21 Principal diagnosis: PPD#2 Vacuum asst delivery Interval history: Pt does not complain however admits when fundus palpated she still has some pain. Pt ambulates without dizziness or chest pain or shortness of breath,. No fever recorded in chart and pt denies N/V/F/C Objective - Constitutional Vitals: Vital Signs - 12hr 06/20/21 06/20/21 06/20/21 05:47 07:47 08:00 Temperature 97.8 F Pulse Rate 90 Respiratory 20 18 Rate Blood Pressure 109/67 O2 Sat by Pulse 99 Oximetry O2 Sat by Pulse 98 Oximetry [ Bilateral Throughout] 06/20/21 14:06 Temperature 98.4 F Pulse Rate 77 Respiratory 18 Rate Blood Pressure 118/74 O2 Sat by Pulse 99 Oximetry O2 Sat by Pulse Oximetry [ Bilateral Throughout] General appearance: Present: no acute distress - Respiratory Respiratory effort: normal - Cardiovascular Rhythm: regular Extremities: No edema - Genitourinary Female genitourinary: other (Fundus tender on palpation 1cm below umbilicus) - Integumentary Integumentary: warm, dry - Neurologic Neurologic: moves all extremities - Psychiatric Psychiatric: cooperative - Labs CBC & Chem 7: 06/20/21 09:40 Labs: Abnormal lab results 06/20/21 Range/Units 09:40 WBC 14.4 H (4.5-11.0) K/mm3 RBC 2.81 L (3.65-5.03) M/mm3 Hgb 7.4 L (10.1-14.3) gm/dl Hct 23.2 L (30.3-42.9) % MCH 26 L (28-32) pg RDW 16.6 H (13.2-15.2) % Lymph % (Auto) 13.2 L (13.4-35.0) % Seg Neutrophils % 78.4 H (40.0-70.0) % Seg Neutrophils # 11.3 H (1.8-7.7) K/mm3 Medications & Allergies - Medications Allergies/Adverse Reactions: Allergies No Known Allergies Allergy (Verified 04/18/21 18:45) Home Medications: Home Medications Medication Instructions Recorded Confirmed Last Taken Type Vit-Fe Fumar-FA [ 1 tab PO QDAY 06/17/21 06/17/21 1 Month Ago History Vitamin] ~05/18/21 Active Medications: Generic Name Dose Route Start Last Admin Trade Name Freq PRN Reason Stop Dose Admin Acetaminophen 650 mg 06/18/21 23:15 Acetaminophen 325 Mg Tab PO Q4H PRN Pain MILD(1-3)/Fever >100.5/NGUYEN Hydrocodone Bitart/Acetaminophen 2 each 06/18/21 23:15 Hydrocodone/Acetaminophen 5-325 Mg Tab PO Q6H PRN Pain, Moderate (4-6) Amoxicillin/Clavulanate Potassium 1 each 06/19/21 10:00 06/19/21 22:18 Amoxicillin/K Clav 875/125mg Tab PO 1 each Q12HR ABIODUN Administration Protocol Bisacodyl 10 mg 06/18/21 23:15 Bisacodyl 10 Mg Rect Supp [place] BID PRN Constipation Butorphanol Tartrate 1 mg 06/18/21 20:03 Butorphanol 2 Mg/1 Ml Inj IV Q2H PRN Pain, Moderate(4-6) LABOR PAIN Butorphanol Tartrate 2 mg 06/18/21 20:03 Butorphanol 2 Mg/1 Ml Inj IV Q2H PRN Pain , Severe (7-10) Diphenhydramine HCl 25 mg 06/18/21 23:15 Diphenhydramine 25 Mg Cap PO Q6H PRN Itching Docusate Sodium 100 mg 06/18/21 23:15 06/20/21 11:55 Docusate Sodium 100 Mg Cap PO 100 mg BID ABIODUN Administration Fentanyl 100 mcg 06/18/21 20:03 Fentanyl 100 Mcg/2 Ml Inj IV Q2H PRN Pain,Severe (7-10) LABOR PAIN Lactated Ringer's 1,000 mls @ 125 mls/hr 06/17/21 10:30 06/18/21 12:15 Lactated Ringers IV 125 mls/hr DIRECT ABIODUN Administration Oxytocin/Sodium Chloride 30 units in 500 mls @ 40 mls/hr 06/17/21 11:00 Pitocin/Ns 30 Unit/500ml IV TITR ABIODUN Protocol Oxytocin/Sodium Chloride 30 units in 500 mls @ 0 mls/hr 06/18/21 07:00 06/18/21 13:57 Pitocin/Ns 30 Unit/500ml IV 8 ml/hr TITR ABIODUN 8 mls/hr Titration Protocol Titrate Fentanyl/Bupivacaine/Sodium Chlor 200 mcg in 100 mls @ 12 mls/hr 06/18/21 11:00 06/18/21 18:41 Fentanyl-Bupiv 2 Mcg/Ml-0.125% EPIDURAL 12 mls/hr TITR ABIODUN Administration Protocol Sodium Chloride 500 mls @ 0 mls/hr 06/18/21 19:46 Nacl 0.9% 500 Ml IV ONCE ABIODUN As Directed Ibuprofen 600 mg 06/18/21 23:15 06/20/21 11:54 Ibuprofen 600 Mg Tab PO 600 mg Q6HR ABIODUN Administration Loperamide HCl 2 mg 06/17/21 11:00 Loperamide 2 Mg Cap PO ONCE PRN give with Hemabate Magnesium Hydroxide 30 ml 06/18/21 23:15 Magnesium Hydroxide (Mom) Oral Liqd Udc PO HS PRN Constipation Misoprostol 800 mcg 06/17/21 11:00 Misoprostol 200 Mcg Tab [place] ONCE PRN Uterine Bleeding Multi-Ingredient Ointment 1 applic 06/18/21 23:15 Lanolin/Zinc/Dimethicone (Lansinoh) 7 Gm TP PRN PRN Sore Nipples Multivitamins/Iron/Calcium 1 each 06/19/21 10:00 06/20/21 11:54 [id number] Fumarate-Folic Acid Vit Tab PO 1 each QDAY ABIODUN Administration Naloxone HCl 0.2 mg 06/18/21 10:04 Naloxone 2 Mg/2 Ml Inj IV Q5M PRN Respiratory sedation Ondansetron HCl 4 mg 06/18/21 23:15 Ondansetron 4 Mg/2 Ml Inj IV Q8H PRN Nausea And Vomiting Oxycodone/Acetaminophen 1 tab 06/18/21 23:15 Oxycodone /Acetaminophen 5-325mg Tab PO Q6H PRN Pain, Moderate (4-6) Promethazine HCl 25 mg 06/18/21 23:15 Promethazine 25 Mg Rect Supp [place] Q6H PRN Nausea And Vomiting Promethazine HCl 25 mg 06/18/21 23:15 Promethazine 25 Mg Tab PO Q6H PRN Nausea And Vomiting Senna/Docusate Sodium 2 tab 06/18/21 23:15 06/19/21 22:18 Sennosides/Docusate Sodium 8.6/50 Mg Tab PO Not Given Q12HR ABIODUN Sodium Chloride 10 ml 06/18/21 23:15 Sodium Chloride 0.9% 10 Ml Flush Syringe IV PRN PRN LINE FLUSH Witch Zulma/Glycerin 1 each 06/18/21 23:15 06/19/21 02:44 Witch Zulma/ Glycerin Pad TP 1 each PRN PRN Administration Hemorrhoid/cleansing/soothing
--- NOTE | 2021-06-20 17:40 | Ultrasound Report ---
ULTRASOUND PELVIS INDICATION: PPD#2 and anemia hgb 7.4; retain prod; pelvic pain. TECHNIQUE: Transabdominal. Duplex Color Doppler used: Yes. COMPARISON: None available FINDINGS: Uterus: Present. Size: 17.9 x 9.1 x 13.2 cm. Endometrial complex: Normal measuring 6 mm. Mass lesions: None. Additional findings: None. Right Ovary -- Normal. Blood flow: Normal. Cyst or mass: None. Left Ovary-- Normal. Blood flow: Normal. Cyst or mass: None. Urinary Bladder: Normal. Free Fluid: None. Additional Findings: None. IMPRESSION: 1. Enlarged uterus. 2. Normal endometrial stripe. No sonographic evidence for retained products of conception Signer Name: Tadeo Sanchez MD Signed: 06/20/2021 5:35 PM Workstation Name: [id number]
[2021-06-20 19:29] LABS: Basophils % (Auto) 0.2 % (0.0-1.8); Eosinophils # (Auto) 0.3 K/mm3 (0.0-0.4); Eosinophils % (Auto) 2.6 % (0.0-4.3); Hematocrit 23.1 % (30.3-42.9); Hemoglobin 7.3 gm/dl (10.1-14.3); Lymphocytes # (Auto) 2.4 K/mm3 (1.2-5.4); Lymphocytes % (Auto) 18.1 % (13.4-35.0); Mean Corpuscular HGB Conc 32 % (30-34); Mean Corpuscular Volume 84 fl (79-97); Monocytes # (Auto) 0.8 K/mm3 (0.0-0.8); Monocytes % (Auto) 5.9 % (0.0-7.3); Platelet Count 256 K/mm3 (140-440); Red Blood Count 2.76 M/mm3 (3.65-5.03); Red Cell Distribution Width 16.7 % (13.2-15.2)
--- NOTE | 2021-06-20 19:36 | Discharge Summary ---
Providers - Providers Date of Admission: 06/17/21 09:43 Date of discharge: 06/20/21 Attending physician: TIFFANY LAW MD 06/18/21 23:15 Consult to [employer] Supervisor [CONS] Routine Reason For Exam: assistance with , SNS Primary care physician: TIFFANY LAW MD Hospitalization Reason for admission: IUP at term (post-term ) Delivery: vacuum extraction Episiotomy: midline Laceration: 4th degree (episiotomy extended to 4th degree) complications: other (chorio and then endomyometritis and hemorrhage during delivery) Discharge diagnosis: IUP at term delivered Hospital course: Postterm admitted and delivered with vacuum assist by Dr. Law with EBL 1000cc, extension to 4th degree laceration, acute endomyometritis diagnosed with leucocytosis and same resolved with augmentin. Pt remained asymptomatic with hgb stable at 7.3 and normal vitals on the day of discharge. Pelvic u/sound done and same wnl . Pt told nothing per rectum and she should continue augmentin x1 wk and iron supplement for another 2months and follow up with Dr. Law in 1-2wks. Condition at discharge: Fair Disposition: 01 HOME / SELF CARE / HOMELESS - Discharge Diagnoses (1) Vacuum-assisted vaginal delivery Status: Acute (2) hemorrhage Status: Acute (3) Fourth degree perineal laceration during delivery, delivered Status: Acute (4) Acute endomyometritis Status: Acute Plan - Discharge Medications Prescriptions: Amoxicillin/Potassium Clav [Augmentin 875-125 Tablet] 1 each PO BID 7 Days #14 tablet Docusate Sodium [Colace] 100 mg PO BID PRN 30 Days #60 capsule PRN Reason: Constipation Ferrous Sulfate [Ferrous Sulfate 324 MG] 324 mg PO TID 30 Days #90 tablet. Ascorbic Acid [Vitamin C] 500 mg PO TID 30 Days #90 capsule.er - Provider Discharge Summary Activity: routine Diet: routine Additional instructions: [] Smoking cessation referral if applicable(refer to patient education folder for contact #) [] Refer to [facility] Booklet Call your doctor immediately for: * Fever > 100.5 * Heavy vaginal bleeding ( >1 pad per hour) * Severe persistent headache * Shortness of breath * Reddened, hot, painful area to leg or breast * Drainage or odor from incision. * Keep incision clean and dry at all times and follow doctor's instructions regarding bathing/showering - Follow up plan Follow up: TIFFANY LAW MD [Primary Care Provider] - 7 Days Forms: [facility] Discharge Summary
[2021-06-20 21:11] VITALS: BP 126/74
== END 2021-06-20 23:00 | disposition home or self-care (01) | DRG 768 ==
LOC: TRG 08:46 → APU 08:47 → LD 09:43 → TRG 09:43 → LD 11:12 → OB 06-18 23:14
PROVIDERS: ADMIT Obstetrics & Gynecology; ATTEND Obstetrics & Gynecology
PROC: 10D07Z6 Extraction of Products of Conception, Vacuum, Via Natural or Artificial Opening (ICD-10-PCS; principal; 2021-06-18)
PROC: 0W8NXZZ Division of Female Perineum, External Approach (ICD-10-PCS; 2021-06-18)
PROC: 0DQP0ZZ Repair Rectum, Open Approach (ICD-10-PCS; 2021-06-18)
PROC: 10H07YZ Insertion of Other Device into Products of Conception, Via Natural or Artificial Opening (ICD-10-PCS; 2021-06-18)
PROC: 0U7C7ZZ Dilation of Cervix, Via Natural or Artificial Opening (ICD-10-PCS; 2021-06-18)
PROC: 3E0P7VZ Introduction of Hormone into Female Reproductive, Via Natural or Artificial Opening (ICD-10-PCS; 2021-06-18)
PROC: 3E0R3BZ Introduction of Anesthetic Agent into Spinal Canal, Percutaneous Approach (ICD-10-PCS; 2021-06-18)
PROC: 00HU33Z Insertion of Infusion Device into Spinal Canal, Percutaneous Approach (ICD-10-PCS; 2021-06-18)
PROC: 3E0234Z Introduction of Serum, Toxoid and Vaccine into Muscle, Percutaneous Approach (ICD-10-PCS; 2021-06-20)
DX: O77.0 Labor and delivery complicated by meconium in amniotic fluid (principal); Z37.0 Single live birth; O41.1230 Chorioamnionitis, third trimester, not applicable or unspecified; O86.12 Endometritis following delivery; O72.1 Other immediate postpartum hemorrhage; O70.3 Fourth degree perineal laceration during delivery; Z3A.41 41 weeks gestation of pregnancy; Z20.822 Contact with and (suspected) exposure to COVID-19; O48.0 Post-term pregnancy; Z23 Encounter for immunization; O76 Abnormality in fetal heart rate and rhythm complicating labor and delivery; O66.0 Obstructed labor due to shoulder dystocia; O90.81 Anemia of the puerperium
CPT/HCPCS: 36415; 59025; 76815; 76857; 80307; 82962; 85007; 85014; 85018; 85025; 85027; 86592; 86850; 86900; 86901; 86920; 88307; 99211; G0378; J3490; J7502; G0463; J0290; J0595; J2210; J2590; J7120; P9016; U0003